=== PATIENT | female | born 1980 | race Caucasian/White ===

== ENCOUNTER → 2022-06-12 | Outpatient (CLI) | payer BC ==
[~2022-06-12] MED LIST: NORCO 325 MG-51 TAB PO
== END ==
LOC: MC.RAD 08:25
DX: N63.22 Unspecified lump in the left breast, upper inner quadrant (principal)

== ENCOUNTER → 2023-12-01 | Outpatient (CLI) | payer BC | LOC: MC.RAD 09:56 | DX: Z12.31 Encounter for screening mammogram for malignant neoplasm of breast (principal) ==